=== PATIENT | male | born 1975 | race Hispanic/Latino ===

== ENCOUNTER 2024-06-18 05:00 | Day surgery (SDC) | payer BC, SELFPAY ==
[2024-06-08 15:31] VITALS: BMI 28.7
[2024-06-18 10:10] VITALS: BP 142/83; PULSE 70; RESP 18; TEMP 36.1; O2SAT 99; BMI 28.8
[2024-06-18] MEDS: LACTATED RINGERS 1,000 ML 150 ML IV CONT (10:16)
--- NOTE | 2024-06-18 10:20 | P.PNAN_ITS ---
Anes - Initial Pre Proc Eval Procedure: Operation Date: 06/18/24 11:30 Proposed Procedures p Screening Colonoscopy - Eriberto Miller MD Date/Time: 06/18/24 10:20 Surgeon: Eriberto Miller MD Pre Op Diagnosis: screening colon Patient Data Age: 48 Gender: M Height: 1.78 m Weight: 91.3 kg Last Vital Signs Temp 97 F L 06/18/24 10:10 Pulse 70 06/18/24 10:10 Resp 18 06/18/24 10:10 BP 142/83 H 06/18/24 10:10 Pulse Ox 99 06/18/24 10:10 O2 Del Method Room Air 06/18/24 10:10 Allergies Allergy/AdvReac Type Severity Reaction Status Date / Time No Known Allergies Allergy Verified 06/18/24 10:06 Home Medications Medication Instructions Recorded Confirmed Type No Home Medications 06/08/24 06/18/24 History Patient hx anesthesia problems: none Family hx anesthesia problems: none Results Review: All pre-operative results and documents have been reviewed as part of the pre- operative evaluation. PMFSH Family History Family History Father Hypertension Family history of elevated blood lipids Diabetes mellitus Mother Hypertension Sibling Patient's brother is in good health Social History Social History Second hand tobacco smoke exposure: No Alcohol intake: current Drinks per week: 5 Living arrangements: with family Spiritual care concerns: No Anes - Eval Final PreProcedure Day of Procedure 06/18/24 10:20 Patient weight: normal Heart: regular rate and rhythm Lungs: clear to auscultation Airway: Mallampati scale Neurological: alert and oriented Last oral intake: >/= 8 hours ASA classification: I Emergent: no Anesthetic plan: proceed Anesthesia type and monitoring: general GIVS and standard monitoring Results Review: All pre-operative results and documents have been reviewed as part of the pre- operative evaluation. Pt active w going to the gym, no cp or sob. Informed Consent: The patient's anesthetic plan and its attendant risks and benefits were discussed with the patient/family/POA. Questions were solicited and answers provided to the satisfaction of the patient/family/POA.
--- NOTE | 2024-06-18 10:40 | PM.IMHP ---
H&P: HPI History of Present Illness Date/Time: 06/18/24 10:40 Chief Complaint: Screening colonoscopy Narrative: This is the patient's first colonoscopy. There are no GI symptoms and there is no family history of colorectal cancer. Review of Systems Review of Systems: All systems reviewed & are unremarkable except as noted in HPI and below PMFSH Family History Family History Father Hypertension Family history of elevated blood lipids Diabetes mellitus Mother Hypertension Sibling Patient's brother is in good health Social History Social History Second hand tobacco smoke exposure: No Alcohol intake: current Drinks per week: 5 Living arrangements: with family Spiritual care concerns: No Meds Home Medications and Allergies Home Medications Medication Instructions Recorded Confirmed Type No Home Medications 06/08/24 06/18/24 History Allergies Allergy/AdvReac Type Severity Reaction Status Date / Time No Known Allergies Allergy Verified 06/18/24 10:06 Vital Signs Vital Signs - 24 hr 06/18/24 10:10 Temperature 97 F L Pulse Rate 70 Respiratory Rate 18 Blood Pressure 142/83 H Pulse Oximetry 99 Oxygen Delivery Room Air Exam Const: General: cooperative and healthy appearing Resp: Effort & Inspection: normal respiratory effort and able to speak in complete sentences Auscultation: clear to auscultation bilaterally Cardio: Rate: regular rate Rhythm: regular rhythm GI: Inspection: normal to inspection GI Palp: No No hepatosplenomegaly present Auscultation: normal bowel sounds Rectal Exam: deferred Skin: General skin exam: normal color Psych: Appearance: grossly normal Mental Status: mental status grossly normal Assessment and Plan Assessment and plan (1) Screening for malignant neoplasm of colon: Code(s): Z12.11 - Encounter for screening for malignant neoplasm of colon Status: Acute Assessment and Plan: The patient is deemed a good candidate for the procedure. Consent signed. Will proceed.
[2024-06-18] MEDS: SIMETHICONE ORAL SUSPENSION 20 MG/0.3 ML 30 ML BOTTLE 0.6 ML IRRIGATION (10:58)
[2024-06-18 11:12] VITALS: BP 107/61; PULSE 81; RESP 16; O2SAT 99
[2024-06-18 11:22] VITALS: BP 120/69; PULSE 71; RESP 22; O2SAT 99
[2024-06-18 11:32] VITALS: BP 124/59; PULSE 61; RESP 15; O2SAT 99
== END 2024-06-18 11:41 | disposition home or self-care (01) ==
PROVIDERS: PCP Physician Assistant; Visit Provider Internal Medicine Gastroenterology
PROC: 0DJD8ZZ Inspection of Lower Intestinal Tract, Via Natural or Artificial Opening Endoscopic (ICD-10-PCS; CPT 45378; principal; 2024-06-18 11:30)
DX: Z12.11 Encounter for screening for malignant neoplasm of colon (principal)
CPT/HCPCS: 45378; J2003; J2704; J7120